=== PATIENT | female | born 2000 | race Caucasian/White ===

== ENCOUNTER 2021-04-06 15:27 | Emergency (ER) | payer OTHER ==
[~2021-04-06] VITALS: Ht 167.6 cm; Wt 68.0 kg
--- NOTE | 2021-04-06 15:52 | NUR ---
The patient presented to ER for c/o cough x 2 weeks, hemoptysis noted this morning. Respiration regular and unlabored. Will continue to monitor the patient.
--- NOTE | 2021-04-06 16:17 | NUR ---
IV started and blood drawned and sent to lab.
[2021-04-06 16:46] LABS: BASOPHILS # (AUTO) 0.1 K/uL (0.0-0.2); BASOPHILS % (AUTO) 0.5 % (0.0-2.0); HEMATOCRIT 42 % (33-45); HEMOGLOBIN 13.8 g/dL (11.5-14.8); LYMPHOCYTES # (AUTO) 3.4 K/uL (0.8-4.8); LYMPHOCYTES % (AUTO) 29.8 % (20.0-44.0); MEAN CORPUSCULAR HGB CONC 33 g/dl (31.0-36.0); MEAN CORPUSCULAR VOLUME 91 fL (82-100); MONOCYTES # (AUTO) 1.1 K/uL (0.1-1.30); MONOCYTES % (AUTO) 9.4 % (2.0-12.0); NEUTROPHILS # (AUTO) 6.7 K/uL (1.8-8.9); NEUTROPHILS % (AUTO) 58.3 % (43.0-81.0); PLATELET COUNT (AUTO) 389 K/uL (150-450); RED BLOOD CELL COUNT(AUTO) 4.59 MIL/uL (4.0-5.2); WHITE BLOOD COUNT (AUTO) 11.4 K/uL (4.3-11.0)
--- NOTE | 2021-04-06 16:53 | NUR ---
covid swab collected and urine and sent to lab.
[2021-04-06 17:05] LABS: CALCIUM, SERUM 9.2 mg/dL (8.5-10.1); CARBON DIOXIDE 24 mmol/L (21-32); CHLORIDE 104 mmol/L (98-107); CREATININE 0.8 mg/dL (0.6-1.3); GLUCOSE 98 mg/dL (74-106); POTASSIUM 3.8 mmol/L (3.5-5.1); SODIUM SERUM 138 mmol/L (136-145); UREA NITROGEN, BLOOD 7 mg/dL (7-18)
[2021-04-06 17:19] LABS: ALANINE AMINOTRANSFERASE 17 U/L (12-78); ALKALINE PHOSPHATASE 100 U/L (46-116); ASPARTATE AMINOTRANSFERASE 16 U/L (15-37); BILIRUBIN,TOTAL 0.2 mg/dL (0.2-1.0); TOTAL PROTEIN, SERUM 7.9 g/dL (6.4-8.2)
[2021-04-06] MEDS ORDERED: ALBUTEROL FS 2.5 MG/3 ML VIAL.NEB NEB ONE (17:30)
[2021-04-06] MEDS ORDERED: IPRATROPIUM NEB FS 0.5 MG/2.5 ML AMPUL.NEB NEB ONE (17:30)
[2021-04-06] MEDS ORDERED: predniSONE 20 MG TABLET ONE (17:30)
[2021-04-06] MEDS ORDERED: predniSONE 20 MG TABLET PO ONE (17:30)
[2021-04-06] MEDS ORDERED: PRED20TA PO (17:31)
[2021-04-06 17:49] VITALS: BP 110/66
--- NOTE | 2021-04-06 17:49 | NUR ---
Patient discharged to [facility]. Written and verbal after care instructions given. Patient verbalizes understanding of instruction.IV removed. Catheter intact and site benign. Pressure and 4x4 applied to site. No bleeding noted.
== END 2021-04-06 17:49 | disposition home or self-care (01) ==
LOC: ER 15:34
DX: R04.2 Hemoptysis (principal); J40 Bronchitis, not specified as acute or chronic; Z20.822 Contact with and (suspected) exposure to COVID-19; R94.31 Abnormal electrocardiogram [ECG] [EKG]; F41.9 Anxiety disorder, unspecified; F32.9 Major depressive disorder, single episode, unspecified; I10 Essential (primary) hypertension; F17.200 Nicotine dependence, unspecified, uncomplicated
CPT/HCPCS: 36415; 71045; 80053; 84484; 84702; 85025; 85378; 85730; 87426; 93005; 99285; C9803; J7512; U0003